=== PATIENT | male | born 1995 | race Native Hawaiian/Other Pacific Islander ===

== ENCOUNTER 2017-02-12 16:56 | Emergency (ER) | payer SELFPAY ==
[~2017-02-12] VITALS: Ht 162.6 cm; Wt 75.0 kg
[2017-02-12 16:59] VITALS: BP 134/62; PULSE 80; RESP 15; TEMP 98.4; O2SAT 98
--- NOTE | 2017-02-12 17:07 | PD ---
HPI . nasal congestion Chief Complaint: ENT Complaint Time Seen by Provider: 17:06 Travel History International Travel<30 days: Yes Contact w/Intl Traveler<30days: [place] Traveled to: [facility] Traveled to known affect area: No History of Present Illness HPI 21-year-old male without any significant past medical history here with complaints of nasal congestion and intermittent nosebleeding. Patient tells me that on January 28 of this year he had a nasal surgery done in [facility]. He says this is then he's been dealing with a significant amount of nasal congestion. He has tried blowing his nose, however the pain is unbearable at times and he is afraid to blow his nose. He denies any fever or chills. But admits to facial congestion and pressure. He attends [employer] and has not yet followed with the student clinic. [facility] Past Medical History Medical History: Denies Significant Hx Social History Alcohol Use: No Tobacco Use: No Substance Use: No Allergies-Medications (Allergen,Severity, Reaction): Coded Allergies: No Known Allergies (Verified Allergy, Unknown, 02/12/17) Reported Meds & Prescriptions Reported Meds & Active Scripts Active Augmentin (Amoxicillin-Clavulanate) 875-125 Mg Tab 1 Tab PO BID Review of Systems General / Constitutional: No: Fever Eyes: No: Visual changes HENT: Positive: Congestion, Nosebleed, No: Headaches Cardiovascular: No: Chest Pain or Discomfort Respiratory: No: Shortness of Breath Gastrointestinal: No: Abdominal Pain Genitourinary: No: Dysuria Musculoskeletal: No: Pain Skin: No Rash Neurologic: No: Weakness Psychiatric: No: Depression Endocrine: No: Polydipsia Hematologic/Lymphatic: No: Easy Bruising Physical Exam Narrative GENERAL: AAO x 3, no acute distress, Well-nourished, well-developed patient. SKIN: Warm and dry. No visible rashes or bruising. HEAD: Normocephalic and atraumatic. EYES: No scleral icterus. No injection or drainage. EOM intact, PERRLA ENT: No nasal drainage noted. Mucous membranes pink. Airway patent. No oropharynx abdomen mildly. There is maxillary sinus tenderness. Nasal turbinates with some dried appearing blood NECK: Supple, trachea midline. No JVD. No Lymphadenopathy CARDIOVASCULAR: Regular rate and rhythm without murmurs, gallops, or rubs. RESPIRATORY: Breath sounds equal bilaterally. No accessory muscle use. No rhonchi or rales. GASTROINTESTINAL: Visual inspection normal EXTREMITIES: No cyanosis or edema. BACK: No obvious deformity. No CVA tenderness. NEURO: CN II-12 intact, PSYCH: AAO x 3, normal affect. Data Data Last Documented VS Vital Signs Date Time Temp Pulse Resp B/P (MAP) Pulse Ox O2 Delivery O2 Flow Rate FiO2 02/12/17 16:59 98.4 80 15 134/62 (86) 98 MDM Medical Decision Making Medical Screen Exam Complete: Yes Emergency Medical Condition: Yes Medical Record Reviewed: Yes Differential Diagnosis Acute sinusitis, allergic rhinitis, chronic sinusitis Narrative Course 21-year-old male here with nasal congestion and periodic epistaxis. He does have some maxillary sinus tenderness. I will prescribe him a course of antibiotics. I advised him to follow-up with [employer] [facility] [facility] school clinic for referral to ear nose and throat. I also advised him to try a nasal bulb to see if he can suction the mucus in his nose. Diagnosis Primary Impression: Acute sinusitis Qualified Codes: J01.00 - Acute maxillary sinusitis, unspecified Referrals: Ear / Nose / Throat Specialist Patient Instructions: General Instructions Additional Instructions: Please return to emergency department if your symptoms return or worsen. Follow up with your primary care provider. Take medications as prescribed. Follow up with the school clinic for referral to ENT. Med/Other Pt SpecificInfo: Prescription(s) given Scripts Amoxicillin-Clavulanate (Augmentin) 875-125 Mg Tab 1 TAB PO BID for Infection, #20 TAB 0 Refills Prov: John Mueller MD 02/12/17 Disposition: 01 DISCHARGE HOME Condition: Stable Bettie Last Feb 12, 2017 17:07
[2017-02-12] MEDS ORDERED: AUGM875T3 PO (17:19)
== END 2017-02-12 17:27 | disposition home or self-care (01) ==
LOC: NEPD 16:56
DX: J01.00 Acute maxillary sinusitis, unspecified (principal)
CPT/HCPCS: 99283